=== PATIENT | male | born 1950 | race Caucasian/White ===

== ENCOUNTER 2023-01-29 09:59 | Day surgery (SDC) | payer OTHER ==
--- NOTE | 2023-01-29 08:37 | HP ---
DATE OF SURGERY: 01/29/2023 HISTORY OF PRESENT ILLNESS: The patient is a 72-year-old for a few weeks had purulent drainage that improved a little bit with antibiotics. He had persistent lump on his neck, question of cyst. His father of lymphoma. PAST MEDICAL HISTORY: Hepatitis C in the past. PAST SURGICAL HISTORY: Prostate surgery. Knee surgery. MEDICATIONS: None on a regular basis but he took antibiotics recently. ALLERGIES: CEPHALEXIN. FAMILY HISTORY: Lymphoma. SOCIAL HISTORY: Former smoking, occasional alcohol use. REVIEW OF SYSTEMS: Fourteen systems reviewed. No chest pain or palpitations. Other systems negative or noncontributory as above and per preadmission questionnaire. He was treated for hepatitis C in the past. PHYSICAL EXAMINATION: Height 5'10". BMI 25. GENERAL: No acute distress. HEENT: Sclerae nonicteric. EOMI. Oral mucous membranes moist. NECK: No JVD. CHEST: Equal excursion, nonlabored breathing. CVS: Regular rate and rhythm. ABDOMEN: Soft. No peritoneal signs. EXTREMITIES: No cyanosis or edema. Left axilla has ruptured site, no current drainage. NEURO: Alert, oriented, moving extremities symmetrically. PSYCH: Appropriate mood and affect. SKIN: Dry. IMPRESSION: 1) Ruptured cyst site left axilla. I recommend excision. 2) Nodule posterior neck area question cyst. I recommend excision. PLAN: General risk of bleeding or infection, risk of wound dehiscence possibly requiring packing. General risk of aches, pains, burning or numbness, general risk of anesthesia, deep vein thrombosis, pulmonary embolism or pneumonia but not limited to. Consent is obtained. Will proceed as an outpatient excision and biopsy of cyst left axilla as well as excision nodule or cyst posterior neck as an outpatient.
[2023-01-29] MEDS ORDERED: Sensorcaine 0.25% 10 ML IJ ONE (10:00)
[2023-01-29 10:22] VITALS: RESP 16
[2023-01-29] MEDS ORDERED: CEFAZOLIN 2 GM-D5W BAG** 2 GM/50 ML ML IV ONE (10:25)
[2023-01-29] MEDS ORDERED: Lactated Ringers 1,000 ML IV ONE (10:25)
[2023-01-29] MEDS ORDERED: Lactated Ringers 1,000 ML IV SCH (10:30)
[2023-01-29] MEDS ORDERED: CEFAZOLIN 2 GM-D5W BAG** 2 GM/50 ML ML IV SCH (10:30)
[2023-01-29 11:00] LABS: ALBUMIN 4.5 g/dL (3.5-5.0); ALKALINE PHOSPHATASE 73 U/L (38-126); ANION GAP 10.2 MEQ/L (5-15); BLOOD UREA NITROGEN 15 mg/dL (9-20); CHLORIDE 101 mmol/L (98-107); Calcium 8.9 mg/dL (8.4-10.2); Carbon Dioxide 28 mmol/L (22-30); Creatinine 1 0.74 mg/dL (0.66-1.25); EST GLOMERULAR FILTRATION RATE > 60.0 ML/MIN; Glucose 101 mg/dL (74-106); Potassium 3.8 mmol/L (3.5-5.1); SGOT/AST 25 U/L (17-59); SGPT/ALT 19 U/L (0-50); SODIUM 136 mmol/L (137-145); Total Protein 7.5 g/dL (6.3-8.2)
[2023-01-29 11:04] LABS: Absolute Neutrophil Ct (ANC) 2.89 x10^3/uL (1.4-6.9); BASOPHIL % 0.9 % (0.0-0.4); Basophil (Absolute #) 0.04 x10^3/uL (0-0.4); Eosinophil % 3.4 % (0.00-5.0); Eosinophil (Absolute #) 0.16 x10^3/uL (0-0.5); Hematocrit 39.5 % (42-50); Hemoglobin 13.5 g/dL (12.5-18.0); IMMATURE GRAN # 0.04 x10^3u/L (0.00-0.03); IMMATURE GRAN % 0.9 % (0.00-0.4); Lymphocyte (Absolute #) 1.16 x10^3/uL (1.0-4.6); Lymphocytes % 24.8 % (24.0-44.0); Mean Cell Volume 88.4 fL (78-100); Mean Corpuscular Hemoglobin 30.2 pg (26-32); Mean Corpuscular Hgb Concent. 34.2 g/dL (32-36); Mean Platelet Volume 9.5 fL (7.5-11.0); Monocyte (Absolute #) 0.38 x10^3/uL (0.0-1.3); Monocytes % 8.1 % (0.0-12.0); Neutrophil % 61.9 % (36.0-66.0); Platelet Count 219 x10^3/uL (150-450); Red Blood Count 4.47 x10^6/uL (4.1-5.6); Red Cell Distribution Width 12.5 % (11.5-14.0); White Blood Count 4.7 x10^3/uL (4.0-10.5)
[2023-01-29] MEDS ORDERED: Sensorcaine 0.25% 10 ML ONE (12:39)
[2023-01-29] MEDS ORDERED: DIPRIVAN 200 MG/20 ML IV ONE (12:54)
[2023-01-29] MEDS ORDERED: Zemuron 100 MG/10 ML ONE (12:54)
[2023-01-29] MEDS ORDERED: SUBLIMAZE 100 MCG/2 ML ONE (12:55)
[2023-01-29] MEDS ORDERED: Versed 2 MG/2 ML Injection ONE (12:55)
[2023-01-29] MEDS ORDERED: PHENYLEPHRINE HCL ONE (13:36)
[2023-01-29] MEDS ORDERED: BRIDION 200MG/2ML IV ONE (13:54)
[2023-01-29] MEDS ORDERED: Triple Antibiotic Ointment ONE (14:06)
[2023-01-29] MEDS ORDERED: TRANDATE 20 MG/4 ML SYRINGE IV ONE ×2 (14:31→15:01)
[2023-01-29 15:33] VITALS: BP 179/102; PULSE 71; TEMP 96.7; O2SAT 100
--- NOTE | 2023-01-30 11:26 | OP ---
SURGERY DATE/TIME: 01/29/2023 1313 PREOPERATIVE DIAGNOSES: 1) Enlarging neck cyst or nodule. 2) Symptomatic ruptured axillary cyst left axilla. POSTOPERATIVE DIAGNOSES: 1) Enlarging neck cyst or nodule. 2) Symptomatic ruptured axillary cyst left axilla. PROCEDURES: 1) Excisional biopsy of neck cyst or nodule (approximately 3 cm with margins). 2) Excisional biopsy axilla ruptured cyst site (approximately 3 cm) with intermediate closure. SURGEON: Enio King M.D. ANESTHESIA: General. ESTIMATED BLOOD LOSS: Minimal. INDICATIONS: As noted above. Risks and benefits explained in detail but not limited to, consent obtained. The sites were marked and confirmed in preoperative holding area. DESCRIPTION OF PROCEDURE AND FINDINGS: He is taken to the operating room. General anesthesia induced, prepped and draped in usual sterile fashion. In the somewhat lateral position with staff holding his left arm up. After official time out and no disagreement with planned procedure, marking out to normal appearing skin surrounding the ruptured cyst site on the axilla was accomplished dissecting down to normal appearing subcutaneous tissue and passed off for pathology. It measured about 3 cm with margins. The tissue was undermined on either side of that back to the midline. The fascia advanced back to the midline with interrupted 3-0 Vicryl in the deep superficial subcu. Skin closed with 4-0 Vicryl, some Dermabond glue was placed on it. Sterile dressing applied. 0.25% Marcaine local. The patient tolerated the procedure well. Attention is then turned to the neck area. Marking out in spindle-shaped fashion dissection carried down underneath this with pinpoint cautery. The specimen is passed off. It measured about 3 cm in size. Hemostasis controlled with pinpoint cautery. Given the proximity did some wound prep here. The area was reprepped with some Betadine and the wound flushed out. Betadine flushed out with saline. Because there had been less than ideal prep, it was closed with interrupted 3-0 Vicryl. The skin is closed with in vertical mattress with 3-0 Prolene. Sterile dressing applied. Antibiotic ointment. The patient tolerated the procedure well. There were no immediate complications. There was no family to discuss the findings with out in the waiting area.
== END 2023-01-29 15:52 | disposition home or self-care (01) ==
LOC: SDC 09:59
PROVIDERS: ATTEND Surgery
DX: L72.0 Epidermal cyst (principal)
CPT/HCPCS: 36415; 80053; 85025; 93005; 99100; J0690; J2250; J2371; J2704; J3010; A9270-GY